=== PATIENT | female | born 1970 | race Caucasian/White ===

== ENCOUNTER 2018-07-15 09:35 | Emergency (ER) | payer SELFPAY ==
[2018-07-15 10:11] LABS: Bilirubin Negative (Negative); Blood, Urine Negative (Negative); Clarity CLEAR (Clear); Glucose, Urine (Dipstick) Negative (Negative); Leukocyte Trace (Negative); Nitrite Positive (Negative); Protein, Urine (Dipstick) Negative (Neg-Trace); Specific Gravity, Urine 1.003 (1.002-1.036); pH, Urine 6.5 (5.0-9.0)
[2018-07-15 10:13] LABS: Pregnancy Test - Urine (BHCG) Negative (Negative)
[2018-07-15 10:14] LABS: Pregu Control Background? CLEAR/WHITE (CLR/WHITE); Pregu Control Bar Appear? YES (CONTROL BAR); Specific Gravity 1.003 (1.002-1.036)
[2018-07-15 10:17] LABS: Bacteria/HPF 3+ HPF (None Seen); Hyaline Casts/LPF 0-3 HYALINE CAST LPF (0-3 Hyaline); RBC/HPF 0-3 HPF (0-3); Squamous Epithelial 0-3 HPF (0-3); WBC/HPF 0-3 HPF (0-3)
== END 2018-07-15 10:30 | disposition home or self-care (01) ==
LOC: ERS 09:35
DX: N30.00 Acute cystitis without hematuria (principal); F17.210 Nicotine dependence, cigarettes, uncomplicated
CPT/HCPCS: 81003; 81015; 81025; 87077; 87086; 87186; 99283

== ENCOUNTER 2023-07-06 17:22 | Observation (INO) | payer OTHER ==
[2023-07-06 18:09] LABS: #Basophils 0.1 thou/uL (0.0-0.2); #Eosinphils 0.5 thou/uL (0.0-0.7); #Monocytes 0.7 thou/uL (0.11-0.59); #Neutrophils 5.8 thou/uL (1.40-6.50); %Basophils 0.5 % (0.0-1.0); %Eosinophils 5.5 % (0.0-10.0); %Lymphocytes 27.9 % (21.0-51.0); %Monocytes 6.8 % (0.0-10.0); %Neutrophils 58.9 % (42.0-75.0); Hemoglobin 16.3 g/dL (12.0-16.0); Mean Corpuscular HGB CONC 33.3 g/dL (32.0-36.0); Mean Corpuscular Hemoglobin 31.5 pg (27.0-31.0); Mean Corpuscular Volume 94.8 fl (78.0-98.0); Platelet Count 284 10x3/uL (130-400); RBC Distribution Width 12.4 % (11.5-14.5); Red Blood Cell (RBC) Count 5.17 mill/uL (4.20-5.40); White Blood Cell (WBC) Count 9.8 10x3/uL (4.8-10.8)
[2023-07-06 19:00] LABS: ALT (SGPT) 18 U/L (8-55); AST (SGOT) 21 U/L (5-34); Albumin 4.6 g/dL (3.5-5.0); Alkaline Phosphatase 57 U/L (40-110); Anion Gap 16 mmol/L (10-20); BUN (Urea Nitrogen) 14 mg/dL (9.8-20.1); Bilirubin, Total 0.6 mg/dL (0.2-1.2); CK (CPK) 100 U/L (29-168); Calc. Creatinine Clearance 0 mL/min (70-130); Calcium 10.3 mg/dL (7.8-10.44); Carbon Dioxide 25 mmol/L (22-29); Chloride 100 mmol/L (98-107); Estimated GFR 92; Globulin 3.3 g/dL (2.4-3.5); Glucose 99 mg/dL (70-105); Protein, Total 7.9 g/dL (6.0-8.3); Sodium 137 mmol/L (136-145)
[2023-07-06 19:25] LABS: Magnesium 1.8 mg/dL (1.6-2.6)
[2023-07-06] MEDS ORDERED: Magnesium 2 GM/50 ML BAG (IN WATER) ONE (20:13)
[2023-07-06 20:14] LABS: Bacteria/HPF 4+ HPF (None Seen); Bilirubin Negative (Negative); Blood, Urine Negative (Negative); CAUTI Indications for Culture Alt mental st,lethar; Clarity Clear (Clear); Glucose, Urine (Dipstick) Normal (Negative); Ketone, Urine Negative (Negative); Leukocyte Negative Leu/uL (Negative); Nitrite Negative (Negative); Protein, Urine (Dipstick) Negative (Neg-Trace); RBC/HPF 0-3 HPF (0-3); Specific Gravity, Urine 1.009 (1.002-1.036); Squamous Epithelial 0-3 HPF (0-3); Urobilinogen Normal mg/dL (Less than 2); WBC/HPF 0-3 HPF (0-3)
[2023-07-06 20:23] LABS: Urine Culture Reflex No No
[2023-07-06 21:18] LABS: Troponin I Less than 0.010 ng/mL (< 0.028)
[2023-07-06] MEDS ORDERED: Acetaminophen 650 MG Suppository PR PRN (21:56)
[2023-07-06] MEDS ORDERED: Ondansetron ODT 4 MG TAB PO PRN (21:56)
[2023-07-06] MEDS ORDERED: Ondansetron PF 4 MG/2 ML Vial IVP PRN (21:56)
[2023-07-06] MEDS ORDERED: Acetaminophen 325 MG TAB PO PRN (21:56)
[2023-07-06 23:09] VITALS: BMI 36.0
[2023-07-07 00:49] LABS: Troponin I Less than 0.010 ng/mL (< 0.028)
[2023-07-07 08:07] LABS: #Basophils 0.1 thou/uL (0.0-0.2); #Eosinphils 0.6 thou/uL (0.0-0.7); #Monocytes 0.8 thou/uL (0.11-0.59); #Neutrophils 4.2 thou/uL (1.40-6.50); %Basophils 0.8 % (0.0-1.0); %Eosinophils 6.8 % (0.0-10.0); %Lymphocytes 32.7 % (21.0-51.0); %Monocytes 9.3 % (0.0-10.0); %Neutrophils 49.7 % (42.0-75.0); Hemoglobin 15.2 g/dL (12.0-16.0); Mean Corpuscular Hemoglobin 31.9 pg (27.0-31.0); Mean Corpuscular Volume 96.4 fl (78.0-98.0); Mean Platelet Volume 10.4 fL (7.4-10.4); Platelet Count 266 10x3/uL (130-400); RBC Distribution Width 12.6 % (11.5-14.5); Red Blood Cell (RBC) Count 4.77 mill/uL (4.20-5.40); White Blood Cell (WBC) Count 8.5 10x3/uL (4.8-10.8)
[2023-07-07 08:31] LABS: Anion Gap 13 mmol/L (10-20); BUN (Urea Nitrogen) 18 mg/dL (9.8-20.1); Calc. Creatinine Clearance 130 mL/min (70-130); Calcium 9.9 mg/dL (7.8-10.44); Carbon Dioxide 27 mmol/L (22-29); Chloride 101 mmol/L (98-107); Estimated GFR 77; Glucose 101 mg/dL (70-105); Potassium 4.6 mmol/L (3.5-5.1); Sodium 136 mmol/L (136-145)
[2023-07-08] MEDS ORDERED: Electrolyte Replacement Protocol 1 EACH FS SCH (08:30)
[2023-07-08] MEDS ORDERED: Electrolyte Replacement Protocol FS PRN (08:45)
[2023-07-08 13:20] LABS: #Basophils 0.1 thou/uL (0.0-0.2); #Eosinphils 0.5 thou/uL (0.0-0.7); #Monocytes 0.9 thou/uL (0.11-0.59); #Neutrophils 6.3 thou/uL (1.40-6.50); %Basophils 0.6 % (0.0-1.0); %Eosinophils 4.6 % (0.0-10.0); %Lymphocytes 26.8 % (21.0-51.0); %Monocytes 8.2 % (0.0-10.0); %Neutrophils 59.4 % (42.0-75.0); Hematocrit 49.3 % (36.0-47.0); Hemoglobin 16.2 g/dL (12.0-16.0); Mean Corpuscular HGB CONC 32.9 g/dL (32.0-36.0); Mean Corpuscular Hemoglobin 31.8 pg (27.0-31.0); Mean Corpuscular Volume 96.7 fl (78.0-98.0); Platelet Count 282 10x3/uL (130-400); RBC Distribution Width 12.1 % (11.5-14.5); White Blood Cell (WBC) Count 10.6 10x3/uL (4.8-10.8)
[2023-07-08 13:46] LABS: ALT (SGPT) 18 U/L (8-55); AST (SGOT) 20 U/L (5-34); Albumin 4.5 g/dL (3.5-5.0); Alkaline Phosphatase 56 U/L (40-110); Anion Gap 11 mmol/L (10-20); BUN (Urea Nitrogen) 14 mg/dL (9.8-20.1); Calc. Creatinine Clearance 163 mL/min (70-130); Calcium 10.1 mg/dL (7.8-10.44); Carbon Dioxide 28 mmol/L (22-29); Chloride 100 mmol/L (98-107); Estimated GFR 101; Globulin 3.4 g/dL (2.4-3.5); Glucose 95 mg/dL (70-105); Potassium 4.3 mmol/L (3.5-5.1); Protein, Total 7.9 g/dL (6.0-8.3); Sodium 135 mmol/L (136-145)
[2023-07-08 13:52] VITALS: BP 132/74; TEMP 97.7
== END 2023-07-08 15:20 | disposition home or self-care (01) ==
LOC: ERS 17:22 → 2SW 20:11
PROVIDERS: ADMIT Student in an Organized Health Care Education/Training Program; ATTEND Internal Medicine
DX: I49.9 Cardiac arrhythmia, unspecified (principal); M10.9 Gout, unspecified; I12.9 Hypertensive chronic kidney disease with stage 1 through stage 4 chronic kidney disease, or unspecified chronic kidney disease; N18.2 Chronic kidney disease, stage 2 (mild); E66.9 Obesity, unspecified; R61 Generalized hyperhidrosis; R01.1 Cardiac murmur, unspecified; I49.3 Ventricular premature depolarization; E87.1 Hypo-osmolality and hyponatremia; F41.9 Anxiety disorder, unspecified; F33.9 Major depressive disorder, recurrent, unspecified; F17.210 Nicotine dependence, cigarettes, uncomplicated; Z88.0 Allergy status to penicillin; Z68.36 Body mass index [BMI] 36.0-36.9, adult; Z79.899 Other long term (current) drug therapy
CPT/HCPCS: 36415; 36416; 71045; 80048; 80053; 81001; 82550; 83735; 84443; 84484; 85025; 93005; 96365; G0378; J3475